=== PATIENT | male | born 1930 | race African-American/Black ===

== ENCOUNTER 2016-10-04 12:35 | Emergency (ER) | payer MEDICARE, MEDICAID ==
[~2016-10-04] VITALS: Ht 175.3 cm; Wt 95.0 kg
[~2016-10-04 12:35] MED LIST: ACET-2178 PO; AMIO200T; CLON0.1T14 PO; CYAN1LOZ; DILT30TA38 PO; Docusate Sodium PO; FURO-151; IPRA3AMP9 HHN; MYL30 PO; PANT40TA4 PO; POTA8TAB4; [UNRECOGNIZED DRUG - CODE] TOP
[2016-10-04 15:51] LABS: BASOPHILS % 0.6 % (0.0-2.0); EOSINOPHILS % 2.7 % (0.0-5.0); HEMATOCRIT. 40.4 % (42.0-52.0); HEMOGLOBIN. 13.5 g/dL (14.0-18.0); LYMPHOCYTES % 13.2 % (20.0-50.0); MEAN CORPUSCULAR HEMOGLOBIN 31.8 pg (28.0-32.0); MEAN CORPUSCULAR VOLUME 95.3 fL (80.0-94.0); MEAN PLATELET VOLUME 7.7 fl (7.4-10.4); MONOCYTES % 8.8 % (2.0-8.0); NEUTROPHILS % 74.7 % (40.0-76.0); PLATELET 205 x1000/uL (130-400); RED BLOOD CELL COUNT 4.24 mill/uL (4.7-6.1); RED CELL DISTRIBUTION WIDTH 15.3 % (11.6-14.6)
[2016-10-04 15:55] LABS: INR 1.1; PROTHROMBIN TIME 11.4 sec
[2016-10-04 15:56] LABS: CARBON DIOXIDE 28 mEq/L (21-32); CHLORIDE 103 mEq/L (98-107)
[2016-10-04 16:03] LABS: TROPONIN I < 0.02 ng/mL (0.00-0.04)
[2016-10-04 18:08] LABS: CLARITY URINE CLEAR (CLEAR); COLOR URINE YELLOW (YELLOW); GLUCOSE URINE NEGATIVE (NEGATIVE); KETONES URINE NEGATIVE (NEGATIVE); LEUKOCYTE ESTERASE URINE 3+ (NEGATIVE); NITRITE URINE NEGATIVE (NEGATIVE); OCCULT BLOOD URINE TRACE (NEGATIVE); PH URINE 7.5 (4.5-8.0); PROTEIN URINE NEGATIVE (NEGATIVE); SPECIFIC GRAVITY URINE 1.009 (1.005-1.030)
[2016-10-04] MEDS ORDERED: CEFTRIAXONE 1 G PREMIX 50 ML IV ONE (18:45)
[2016-10-04 19:45] VITALS: BP 155/96
== END 2016-10-04 22:13 | disposition home or self-care (01) ==
LOC: ER 13:14
DX: N50.89 Other specified disorders of the male genital organs (principal); R60.0 Localized edema; I11.0 Hypertensive heart disease with heart failure; I50.9 Heart failure, unspecified; K21.9 Gastro-esophageal reflux disease without esophagitis; J44.9 Chronic obstructive pulmonary disease, unspecified; I48.91 Unspecified atrial fibrillation; N40.1 Benign prostatic hyperplasia with lower urinary tract symptoms; R33.8 Other retention of urine
CPT/HCPCS: 36415; 71010; 76870; 80053; 81001; 83605; 83880; 84484; 85025; 85610; 87077; 87086; 87186; 93005; 93976; 96365; 99285; J0696; 96360

== ENCOUNTER 2017-01-01 11:36 | Emergency (ER) | payer MEDICARE, MEDICAID ==
[~2017-01-01] VITALS: Ht 172.7 cm; Wt 75.0 kg
[~2017-01-01 11:36] MED LIST changes: +DUONEB3 ML HHN; -IPRA3AMP9 HHN
[2017-01-01 13:40] LABS: BASOPHILS % 0.7 % (0.0-2.0); EOSINOPHILS % 1.7 % (0.0-5.0); LYMPHOCYTES % 13.6 % (20.0-50.0); MEAN CORPUSCULAR HEMOGLOBIN 30.4 pg (28.0-32.0); MEAN CORPUSCULAR VOLUME 91.5 fL (80.0-94.0); MEAN PLATELET VOLUME 8.4 fl (7.4-10.4); MONOCYTES % 5.9 % (2.0-8.0); NEUTROPHILS % 78.1 % (40.0-76.0); PLATELET 234 x1000/uL (130-400); RED BLOOD CELL COUNT 5.25 mill/uL (4.7-6.1); RED CELL DISTRIBUTION WIDTH 15.6 % (11.6-14.6)
[2017-01-01 13:43] LABS: CHLORIDE 112 mEq/L (98-107)
[2017-01-01 13:53] LABS: CARBON DIOXIDE 27 mEq/L (21-32)
[2017-01-01] MEDS: VANCOMYCIN 1 G PREMIX 200 ML IV SCH ×2 (15:43→20:58)
[2017-01-01 17:35] LABS: CLARITY URINE CLOUDY (CLEAR); COLOR URINE YELLOW (YELLOW); GLUCOSE URINE NEGATIVE (NEGATIVE); KETONES URINE NEGATIVE (NEGATIVE); LEUKOCYTE ESTERASE URINE 3+ (NEGATIVE); NITRITE URINE POSITIVE (NEGATIVE); OCCULT BLOOD URINE 1+ (NEGATIVE); PH URINE 8.5 (4.5-8.0); PROTEIN URINE 2+ (NEGATIVE); SPECIFIC GRAVITY URINE 1.018 (1.005-1.030)
[2017-01-01 23:33] VITALS: BP 135/80
== END 2017-01-01 23:37 ==
LOC: ER 12:31
DX: N39.0 Urinary tract infection, site not specified (principal); L72.0 Epidermal cyst; K40.90 Unilateral inguinal hernia, without obstruction or gangrene, not specified as recurrent; I48.91 Unspecified atrial fibrillation; N40.0 Benign prostatic hyperplasia without lower urinary tract symptoms; I50.9 Heart failure, unspecified; K21.9 Gastro-esophageal reflux disease without esophagitis; I11.0 Hypertensive heart disease with heart failure; F03.90 Unspecified dementia, unspecified severity, without behavioral disturbance, psychotic disturbance, mood disturbance, and anxiety; J44.9 Chronic obstructive pulmonary disease, unspecified
CPT/HCPCS: 36415; 76870; 80053; 81001; 85025; 87077; 87086; 87186; 93976; 96374; 99285; J3370; A4315

== ENCOUNTER 2017-01-21 20:49 | Inpatient (IN) | payer MEDICARE, MEDICAID ==
[~2017-01-21] VITALS: Ht 180.3 cm; Wt 78.9 kg
[~2017-01-21 20:49] MED LIST changes: -FURO-151; +FURO-151 PO; -POTA8TAB4; +POTA8TAB4 PO
[2017-01-21 21:38] LABS: INR 1.3; PROTHROMBIN TIME 13.1 sec (9.4-11.6)
[2017-01-21 21:45] LABS: CARBON DIOXIDE 21 mEq/L (21-32); CHLORIDE 133 mEq/L (98-107)
[2017-01-21] MEDS ORDERED: SODIUM CHLORIDE 0.9% 1000ML BAG (SEPSIS BOLUS) IV ONE (22:30)
[2017-01-21] MEDS ORDERED: CEFTRIAXONE 1 G PREMIX 50 ML IV ONE (23:15)
[2017-01-21 23:25] LABS: BASOPHILS % 0.4 % (0.0-2.0); EOSINOPHILS % 0.2 % (0.0-5.0); HEMATOCRIT. 53.9 % (42.0-52.0); HEMOGLOBIN. 17.4 g/dL (14.0-18.0); LYMPHOCYTES % 7.8 % (20.0-50.0); MEAN CORPUSCULAR HEMOGLOBIN 30.6 pg (28.0-32.0); MEAN CORPUSCULAR VOLUME 95.2 fL (80.0-94.0); MEAN PLATELET VOLUME 9.5 fl (7.4-10.4); MONOCYTES % 4.1 % (2.0-8.0); NEUTROPHILS % 87.5 % (40.0-76.0); PLATELET 163 x1000/uL (130-400); RED BLOOD CELL COUNT 5.67 mill/uL (4.7-6.1); RED CELL DISTRIBUTION WIDTH 17.8 % (11.6-14.6)
[2017-01-22] MEDS ORDERED: SODIUM CHLORIDE 0.9% 1,000 ML IV SCH (00:03)
[2017-01-22 03:28] VITALS: BP 113/78
[2017-01-22] MEDS ORDERED: DONE5TAB7 PO (05:02)
[2017-01-22] MEDS ORDERED: AMIO100T4 PO (05:02)
[2017-01-22] MEDS ORDERED: ASPI-1159 PO (05:02)
[2017-01-22] MEDS ORDERED: BACL-141 PO (05:02)
[2017-01-22] MEDS ORDERED: MOM PO (05:23)
[2017-01-22] MEDS ORDERED: FEO PR (05:23)
[2017-01-22] MEDS ORDERED: BISA-81 * (05:23)
[2017-01-22] MEDS ORDERED: FAMO40TA7 PO (05:23)
[2017-01-22] MEDS ORDERED: FLUT9.9S16 NS (05:23)
[2017-01-22] MEDS ORDERED: HYDR-523 PO (05:23)
[2017-01-22] MEDS ORDERED: SULF1TAB48 PO (05:23)
[2017-01-22] MEDS ORDERED: ACETAMINOPHEN 325MG TABLET PO PRN (06:15)
[2017-01-22] MEDS: DILTIAZEM HCL 30MG TABLET PO SCH ×3 (06:15→21:01)
[2017-01-22] MEDS ORDERED: BISACODYL 10MG SUPP PR PRN (06:30)
[2017-01-22] MEDS: DEXT 5%/0.45% NACL 1000ML 1,000 ML IV SCH ×3 (07:09→21:31)
[2017-01-22 08:29] VITALS: BP 98/57
[2017-01-22] MEDS ORDERED: MINERAL OIL ENEMA 133ML PR PRN (09:00)
[2017-01-22] MEDS ORDERED: FAMOTIDINE PO SCH (09:00)
[2017-01-22] MEDS: FAMOTIDINE 20MG TABLET PO SCH (09:00)
[2017-01-22] MEDS ORDERED: FLUTICASONE FUROATE NS SCH (09:00)
[2017-01-22] MEDS: DONEPEZIL HCL 5MG TABLET PO SCH (09:00)
[2017-01-22] MEDS ORDERED: MAGNESIUM HYDROXIDE 400MG/5ML 30ML UDC PO PRN (09:00)
[2017-01-22] MEDS: ASPIRIN 81MG EC TABLET PO SCH (09:00)
[2017-01-22 09:43] LABS: HEMATOCRIT 57.3 % (42.0-52.0); MEAN CORPUSCULAR HEMOGLOBIN 30.3 pg (28.0-32.0); MEAN CORPUSCULAR VOLUME 96.7 fL (80.0-94.0); PLATELET 133 x1000/uL (130-400); RED BLOOD CELL COUNT 5.93 mill/uL (4.7-6.1); RED CELL DISTRIBUTION WIDTH 18.2 % (11.6-14.6)
[2017-01-22] MEDS: FLUTICASONE PROPIONATE 50MCG/SPRAY BOTTLE BOTHNSTRLS SCH (10:09)
[2017-01-22 12:11] VITALS: BP 97/60
[2017-01-22 14:32] VITALS: BP 136/74
[2017-01-22 16:39] LABS: CLARITY URINE CLOUDY (CLEAR); COLOR URINE DARK YELLOW (YELLOW); GLUCOSE URINE NEGATIVE (NEGATIVE); KETONES URINE TRACE (NEGATIVE); LEUKOCYTE ESTERASE URINE 3+ (NEGATIVE); NITRITE URINE NEGATIVE (NEGATIVE); OCCULT BLOOD URINE 3+ (NEGATIVE); PH URINE 5.5 (4.5-8.0); PROTEIN URINE 2+ (NEGATIVE)
[2017-01-22 16:51] VITALS: BP 104/80
[2017-01-22 17:00] LABS: *AMPHETAMINES SCREEN URINE NEGATIVE (NEGATIVE); *BARBITURATES SCREEN URINE NEGATIVE (NEGATIVE); *BENZODIAZEPINES SCREEN URINE NEGATIVE (NEGATIVE); *COCAINE SCREEN URINE NEGATIVE (NEGATIVE); CANNABINOID URINE SCREEN NEGATIVE (NEGATIVE); METHADONE URINE SCREEN NEGATIVE (NEGATIVE); OPIATES URINE SCREEN NEGATIVE (NEGATIVE); PHENCYCLIDINE URINE SCREEN NEGATIVE (NEGATIVE)
[2017-01-22 20:00] VITALS: BP 113/73
[2017-01-22] MEDS: CEFTRIAXONE 1 G PREMIX 50 ML IV SCH (21:27)
[2017-01-23] VITALS: BP 130/102
[2017-01-23 04:00] VITALS: BP 94/61
[2017-01-23] MEDS: DILTIAZEM HCL 30MG TABLET PO SCH ×3 (04:54→21:22)
[2017-01-23 07:34] LABS: HEMATOCRIT 53.6 % (42.0-52.0); HEMOGLOBIN 17.3 g/dL (14.0-18.0); MEAN CORPUSCULAR HEMOGLOBIN 30.9 pg (28.0-32.0); MEAN CORPUSCULAR VOLUME 95.7 fL (80.0-94.0); PLATELET 113 x1000/uL (130-400); RED BLOOD CELL COUNT 5.61 mill/uL (4.7-6.1); RED CELL DISTRIBUTION WIDTH 18.4 % (11.6-14.6)
[2017-01-23 07:46] VITALS: BP 121/64
[2017-01-23] MEDS: ASPIRIN 81MG EC TABLET PO SCH (09:00)
[2017-01-23] MEDS: DONEPEZIL HCL 5MG TABLET PO SCH (09:00)
[2017-01-23] MEDS: FLUTICASONE PROPIONATE 50MCG/SPRAY BOTTLE BOTHNSTRLS SCH (09:00)
[2017-01-23] MEDS: FAMOTIDINE 20MG TABLET PO SCH (09:00)
[2017-01-23 12:00] VITALS: BP 101/62
[2017-01-23 16:00] VITALS: BP 103/65
[2017-01-23] MEDS: DEXT 5%/0.45% NACL 1000ML 1,000 ML IV SCH ×2 (17:08→21:58)
[2017-01-23 20:00] VITALS: BP 117/66
[2017-01-23] MEDS: CEFTRIAXONE 1 G PREMIX 50 ML IV SCH (20:49)
[2017-01-24] VITALS (31 sets, daily range): BP systolic 44–142; BP diastolic 17–89
[2017-01-24] MEDS: DILTIAZEM HCL 30MG TABLET PO SCH ×3 (06:00→21:31)
[2017-01-24] MEDS: DEXT 5%/0.45% NACL 1000ML 1,000 ML IV SCH (06:09)
[2017-01-24] MEDS: FAMOTIDINE 20MG TABLET PO SCH (08:51)
[2017-01-24] MEDS: ASPIRIN 81MG EC TABLET PO SCH (08:51)
[2017-01-24] MEDS: DONEPEZIL HCL 5MG TABLET PO SCH (08:51)
[2017-01-24] MEDS: FLUTICASONE PROPIONATE 50MCG/SPRAY BOTTLE BOTHNSTRLS SCH (09:00)
[2017-01-24 09:03] LABS: HEMATOCRIT 46.7 % (42.0-52.0); HEMATOCRIT. 46.7 % (42.0-52.0); HEMOGLOBIN 15.2 g/dL (14.0-18.0); HEMOGLOBIN. 15.2 g/dL (14.0-18.0); MEAN CORPUSCULAR HEMOGLOBIN 30.5 pg (28.0-32.0); MEAN CORPUSCULAR VOLUME 93.5 fL (80.0-94.0); MEAN PLATELET VOLUME 9.4 fl (7.4-10.4); PLATELET 86 x1000/uL (130-400); RED BLOOD CELL COUNT 4.99 mill/uL (4.7-6.1); RED CELL DISTRIBUTION WIDTH 17.2 % (11.6-14.6)
[2017-01-24 10:51] LABS: PLATELET ESTIMATE DECREASED
[2017-01-24 11:57] LABS: BG BASE EXCESS -10.8 mmol/L (-2.0-2.0); BG CARBOXYHEMOGLOBIN 0.6 % (0.5-1.5); BG DEOXYHEMOGLOBIN 18.5 % (0.0-5.0); BG FRACTION INSPIRED OXYGEN 30; BG METHEMOGLOBIN 0.4 % (0.0-1.5); BG OXYGEN SATURATION 81.3 % (92.0-98.5); BG OXYHEMOGLOBIN 80.5 % (94.0-97.0); BG PCO2 33.9 mmHg (35.0-45.0); BG PH 7.265 (7.350-7.450); BG PO2 48.2 mmHg (75.0-100.0); BG SAMPLE SITE RIGHT BRACHIAL; BG TOTAL HEMOGLOBIN 16.1 g/dL (12.0-18.0); BG VENT MODE NASAL CANNULA
[2017-01-24] MEDS ORDERED: SODIUM BICARBONATE 8.4% 1 MEQ/ML 50ML SYR IV NR ×2 (12:45→21:15)
[2017-01-24] MEDS: DEXT 5%/0.2% NACL 1,000 ML IV SCH ×2 (12:49→19:50)
[2017-01-24 14:55] LABS: BG BASE EXCESS -9.1 mmol/L (-2.0-2.0); BG CARBOXYHEMOGLOBIN 0.4 % (0.5-1.5); BG DEOXYHEMOGLOBIN 10.8 % (0.0-5.0); BG FRACTION INSPIRED OXYGEN 50; BG HCO3 ACT 14.3 mmol/L (22.0-26.0); BG METHEMOGLOBIN 0.3 % (0.0-1.5); BG OXYGEN SATURATION 89.1 % (92.0-98.5); BG OXYHEMOGLOBIN 88.5 % (94.0-97.0); BG PCO2 25.6 mmHg (35.0-45.0); BG PH 7.364 (7.350-7.450); BG SAMPLE SITE RIGHT RADIAL; BG TOTAL HEMOGLOBIN 15.3 g/dL (12.0-18.0); BG VENT MODE MASK - VENTI
[2017-01-24] MEDS ORDERED: NOREPINEPHRINE 4 MG in DEXT 5% WATER 246 ML IV PRN (18:15)
[2017-01-24] MEDS ORDERED: PROPOFOL 10MG/ML 100ML 100 ML IV PRN (18:15)
[2017-01-24] MEDS ORDERED: DEXT 5%/0.45% NACL 1000ML 1,000 ML IV SCH (18:30)
[2017-01-24] MEDS ORDERED: ALBUMIN HUMAN 12.5G/250ML (5%) IV NR (18:30)
[2017-01-24] MEDS ORDERED: LORAZEPAM 2MG/ML CPJ IM PRN (18:30)
[2017-01-24 19:19] LABS: HEMATOCRIT 47.4 % (42.0-52.0); HEMOGLOBIN 14.8 g/dL (14.0-18.0); MEAN CORPUSCULAR HEMOGLOBIN 30.3 pg (28.0-32.0); MEAN CORPUSCULAR VOLUME 97.3 fL (80.0-94.0); PLATELET 60 x1000/uL (130-400); RED BLOOD CELL COUNT 4.87 mill/uL (4.7-6.1)
[2017-01-24 19:38] LABS: TROPONIN I 0.08 ng/mL (0.00-0.04)
[2017-01-24 20:16] LABS: BG BASE EXCESS -13.5 mmol/L (-2.0-2.0); BG CARBOXYHEMOGLOBIN 0.2 % (0.5-1.5); BG DEOXYHEMOGLOBIN 4.8 % (0.0-5.0); BG FRACTION INSPIRED OXYGEN 100; BG HCO3 ACT 11.8 mmol/L (22.0-26.0); BG METHEMOGLOBIN 0.3 % (0.0-1.5); BG OXYGEN SATURATION 95.2 % (92.0-98.5); BG OXYHEMOGLOBIN 94.7 % (94.0-97.0); BG PO2 82.5 mmHg (75.0-100.0); BG SAMPLE SITE RIGHT FEMORAL; BG TIDAL VOLUME(mL) 500 mL; BG TOTAL HEMOGLOBIN 14.3 g/dL (12.0-18.0); BG VENT MODE VENT - A/C; BG VENT RATE 14 set
[2017-01-24] MEDS: IPRATROPIUM/ALBUTEROL 0.5-3(2.5)MG/3ML NEB HHN SCH ×2 (20:20→23:26)
[2017-01-24] MEDS ORDERED: VANCOMYCIN 1500MG in DEXTROSE 5% WATER 250ML IV NR (21:00)
[2017-01-24] MEDS ORDERED: PHENYLEPHRINE 40 MG in DEXT 5% WATER 250 ML IV PRN (21:30)
[2017-01-24] MEDS: CEFTRIAXONE 1 G PREMIX 50 ML IV SCH (21:37)
[2017-01-24] MEDS: NOREPINEPHRINE 16 MG in DEXT 5% WATER 234 ML IV PRN (22:10)
[2017-01-24] MEDS ORDERED: SODIUM BICARBONATE 100 MEQ in DEXTROSE 5% WATER 1,000 ML IV SCH (23:30)
[2017-01-25] VITALS (45 sets, daily range): BP systolic 50–139; BP diastolic 26–81
[2017-01-25] MEDS ORDERED: PHENYLEPHRINE 80 MG in DEXT 5% WATER 500 ML IV PRN (01:17)
[2017-01-25] MEDS ORDERED: ETOMIDATE 2MG/ML 10ML VIAL IV ONE (02:00)
[2017-01-25] MEDS ORDERED: SUCCINYLCHOLINE CHLORIDE 200MG/10ML VIAL IV ONE (02:00)
[2017-01-25] MEDS: IPRATROPIUM/ALBUTEROL 0.5-3(2.5)MG/3ML NEB HHN SCH (03:08)
[2017-01-25] MEDS: DILTIAZEM HCL 30MG TABLET PO SCH (05:26)
[2017-01-25 05:28] LABS: BG CARBOXYHEMOGLOBIN 0.1 % (0.5-1.5); BG DEOXYHEMOGLOBIN 14.4 % (0.0-5.0); BG FRACTION INSPIRED OXYGEN 100; BG HCO3 ACT 15.3 mmol/L (22.0-26.0); BG METHEMOGLOBIN 0.3 % (0.0-1.5); BG OXYGEN SATURATION 85.5 % (92.0-98.5); BG OXYHEMOGLOBIN 85.2 % (94.0-97.0); BG PCO2 39.5 mmHg (35.0-45.0); BG PH 7.205 (7.350-7.450); BG PO2 55.2 mmHg (75.0-100.0); BG SAMPLE SITE RIGHT RADIAL; BG TIDAL VOLUME(mL) 500 mL; BG VENT MODE VENT - A/C; BG VENT RATE 14 set
[2017-01-25] MEDS ORDERED: SODIUM BICARBONATE 8.4% 1 MEQ/ML 50ML SYR IV NR (05:45)
[2017-01-25 06:25] LABS: HEMATOCRIT. 44.9 % (42.0-52.0); HEMOGLOBIN. 14.3 g/dL (14.0-18.0); MEAN CORPUSCULAR HEMOGLOBIN 30.4 pg (28.0-32.0); MEAN CORPUSCULAR VOLUME 95.6 fL (80.0-94.0); MEAN PLATELET VOLUME 11.1 fl (7.4-10.4); PLATELET 85 x1000/uL (130-400)
[2017-01-25] MEDS ORDERED: DILTIAZEM HCL 5MG/ML 5ML VIAL IV NR (06:44)
[2017-01-25] MEDS: NOREPINEPHRINE 16 MG in DEXT 5% WATER 234 ML IV PRN (06:56)
[2017-01-25] MEDS ORDERED: VASOPRESSIN 10 UNIT in SODIUM CHLORIDE 0.9% 99.5 ML IV PRN (07:30)
[2017-01-25] MEDS ORDERED: SODIUM CHLORIDE 0.9% 1,000 ML IV ONE (07:45)
[2017-01-25] MEDS ORDERED: DILTIAZEM HCL 125 MG in DEXT 5% WATER 100 ML IV PRN (08:00)
[2017-01-25 08:03] LABS: BG BASE EXCESS -10.7 mmol/L (-2.0-2.0); BG CARBOXYHEMOGLOBIN 0.1 % (0.5-1.5); BG DEOXYHEMOGLOBIN 18.4 % (0.0-5.0); BG FRACTION INSPIRED OXYGEN 100; BG HCO3 ACT 16.1 mmol/L (22.0-26.0); BG METHEMOGLOBIN 0.5 % (0.0-1.5); BG OXYGEN SATURATION 81.5 % (92.0-98.5); BG PH 7.234 (7.350-7.450); BG PO2 49.4 mmHg (75.0-100.0); BG SAMPLE SITE RIGHT BRACHIAL; BG TIDAL VOLUME(mL) 550 mL; BG TOTAL HEMOGLOBIN 14.7 g/dL (12.0-18.0); BG VENT MODE VENT - A/C; BG VENT RATE 20 set
[2017-01-25] MEDS ORDERED: POTASSIUM CHLORIDE INJ 40 MEQ in DEXT 5% WATER 250 ML IV NR (09:00)
[2017-01-25] MEDS ORDERED: MORPHINE SULFATE 250 MG in DEXT 5% WATER 240 ML IV PRN (09:30)
[2017-01-25 09:52] LABS: NUCLEATED RED BLOOD CELLS 1 /100 WBC
[2017-01-25 09:53] LABS: PLATELET ESTIMATE DECREASED
== END 2017-01-25 10:51 | disposition expired | DRG 871 ==
LOC: ER 20:56 → 6WST 01-22 00:04 → ENRESERV 01-22 01:41 → CVICU 01-24 18:03
PROVIDERS: ADMIT Internal Medicine Critical Care Medicine; ATTEND Internal Medicine Critical Care Medicine
PROC: 5A1945Z Respiratory Ventilation, 24-96 Consecutive Hours (ICD-10-PCS; 2017-01-24)
PROC: 0BH17EZ Insertion of Endotracheal Airway into Trachea, Via Natural or Artificial Opening (ICD-10-PCS; 2017-01-24)
PROC: 02HV33Z Insertion of Infusion Device into Superior Vena Cava, Percutaneous Approach (ICD-10-PCS; principal; 2017-01-25)
PROC: B548ZZA Ultrasonography of Superior Vena Cava, Guidance (ICD-10-PCS; 2017-01-25)
DX: A41.50 Gram-negative sepsis, unspecified (principal); G93.41 Metabolic encephalopathy; J96.00 Acute respiratory failure, unspecified whether with hypoxia or hypercapnia; R65.21 Severe sepsis with septic shock; N17.9 Acute kidney failure, unspecified; E87.0 Hyperosmolality and hypernatremia; I48.0 Paroxysmal atrial fibrillation; E86.0 Dehydration; E83.52 Hypercalcemia; E87.2 Acidosis; N39.0 Urinary tract infection, site not specified; I13.0 Hypertensive heart and chronic kidney disease with heart failure and stage 1 through stage 4 chronic kidney disease, or unspecified chronic kidney disease; I50.9 Heart failure, unspecified; F03.90 Unspecified dementia, unspecified severity, without behavioral disturbance, psychotic disturbance, mood disturbance, and anxiety; K21.9 Gastro-esophageal reflux disease without esophagitis; K44.9 Diaphragmatic hernia without obstruction or gangrene; N40.0 Benign prostatic hyperplasia without lower urinary tract symptoms; N18.3 Chronic kidney disease, stage 3 (moderate); F17.200 Nicotine dependence, unspecified, uncomplicated; Z51.5 Encounter for palliative care; Z66 Do not resuscitate; R82.71 Bacteriuria; R31.9 Hematuria, unspecified; I25.10 Atherosclerotic heart disease of native coronary artery without angina pectoris; J44.9 Chronic obstructive pulmonary disease, unspecified; N28.1 Cyst of kidney, acquired; Z91.81 History of falling; Z95.1 Presence of aortocoronary bypass graft; Z95.2 Presence of prosthetic heart valve; Z79.899 Other long term (current) drug therapy
CPT/HCPCS: 36415; 36569; 36600; 70450; 71010; 74000; 76770; 76937; 80048; 80053; 80305; 81001; 82375; 82533; 82550; 82570; 82805; 82962; 83605; 83735; 83880; 84100; 84300; 84478; 84484; 84540; 85025; 85027; 85610; 86141; 87040; 87077; 87086; 87116; 87186; 92610; 93005; 93306; 94002; 94003; 94640; 96365; 96375; 99285; C1725; C1893; J0330; J0696; J2704; J3370; J3480; J3490; J7030; J7050; J7060; J7070; J7620; P9041; A4315